=== PATIENT | female | born 1970 | race Caucasian/White ===

== ENCOUNTER 2019-01-27 13:22 | Emergency (ER) | payer OTHER ==
[2019-01-27 13:36] VITALS: BP 111/65; PULSE 82; TEMP 98.2; BMI 31.2
[2019-01-27 14:32] LABS: EPI CELLS 8.9 /HPF (0-5/HPF); HYALINE CASTS 3 /lpf (0-8); URINE APPEARANCE TURBID; URINE BACTERIA 330.9 /hpf (NEGATIVE); URINE BILIRUBIN NEGATIVE (NEGATIVE); URINE COLOR YELLOW; URINE GLUCOSE (UA) NEGATIVE (NEGATIVE); URINE KETONE NEGATIVE (NEGATIVE); URINE LEUK ESTERASE 3+ (NEGATIVE); URINE NITRITE NEGATIVE (NEGATIVE); URINE PROTEIN 2+ (NEGATIVE); URINE UROBILINOGEN 0.2 mg/dL (0.2-1.0); URINE WBC 628 /hpf (0-5)
--- NOTE | 2019-01-27 14:44 | PDOC ---
History of Present Illness - General Chief Complaint: Urinary Problem Stated Complaint: urinary frequency Time Seen by Provider: 01/27/19 13:52 History Source: Patient, Parent(s) ( Quentin translated per pt's request) Exam Limitations: No Limitations - History of Present Illness Travel History: No Past History - Travel Traveled outside of the country in the last 30 days: No Close contact w/someone who was outside of country & ill: No - Past Medical History Allergies/Adverse Reactions: Allergies Allergy/AdvReac Type Severity Reaction Status Date / Time No Known Allergies Allergy Verified 11/06/15 10:44 Home Medications: Ambulatory Orders Acetaminophen [Tylenol .Regular Strength -] 650 mg PO Q4H PRN #0 tablet Docusate Sodium [Colace -] 100 mg PO TID capsule 11/10/15 Levofloxacin [Levaquin] 500 mg PO DAILY #2 tablet 11/10/15 Nitrofurantoin Monohyd/M-Cryst [Macrobid -] 100 mg PO BID #14 capsule 01/27/19 COPD: No - Psycho Social/Smoking Cessation Hx Smoking History: Never smoked Have you smoked in the past 12 months: No Hx Alcohol Use: No Drug/Substance Use Hx: No Substance Use Type: None Review of Systems - Review of Systems Able to Perform ROS?: Yes Is the patient limited Turkmen proficient: No Constitutional: No: Chills, Fever ABD/GI: No: Abdominal Distended, Blood Streaked Bowels, Diarrhea, Nausea, Poor Appetite, Poor Fluid Intake, Vomiting, Indigestion, Abdominal cramping : Yes: Burning, Dysuria, Frequency, Urgency. No: Symptoms Reported, Discharge , Flank Pain, Hematuria, Pain, Testicular Mass, Testicular Swelling, Testicular Pain Musculoskeletal: No: Back Pain Neurological: No: Headache, Numbness, Paresthesia, Dizziness *Physical Exam - Vital Signs Last Vital Signs Temp Pulse Resp BP Pulse Ox 98.2 F 82 19 111/65 98 01/27/19 13:33 01/27/19 13:33 01/27/19 13:33 01/27/19 13:33 01/27/19 13:33 - Physical Exam General Appearance: Yes: Nourished Respiratory/Chest: positive: Lungs Clear, Normal Breath Sounds Cardiovascular: positive: Regular Rhythm, Regular Rate, S1, S2 Gastrointestinal/Abdominal: positive: Normal Bowel Sounds, Soft Integumentary: positive: Normal Color Neurologic: positive: director of maternity services II-XII NML intact, Fully Oriented, Alert, Normal Mood/ Affect, Normal Response, Motor Strength / ED Treatment Course - ADDITIONAL ORDERS Additional order review: Laboratory Results 01/27/19 14:13 Urine Color Yellow Urine Appearance Turbid Urine pH 6.0 Ur Specific [place] 1.009 L Urine Protein 2+ H Urine Glucose (UA) Negative Urine Ketones Negative Urine Blood 3+ H Urine Nitrite Negative Urine Bilirubin Negative Urine Urobilinogen 0.2 Ur Leukocyte Esterase 3+ H Urine WBC (Auto) 628 Urine Casts (Auto) 3 U Epithel Cells (Auto) 8.9 Urine Bacteria (Auto) 330.9 Medical Decision Making - Medical Decision Making Urinary frequency and urgency X 3 days denies pelvic pain, fever, chills or STI concerns + UA, Ucx sent Rx for abx sent to pharmacy Discharge - Discharge Information Problems reviewed: Yes Clinical Impression/Diagnosis: UTI (urinary tract infection) Qualifiers: Urinary tract infection type: acute cystitis Hematuria presence: without hematuria Qualified Code(s): N30.00 - Acute cystitis without hematuria Condition: Stable Disposition: HOME - Admission No - Additional Discharge Information Prescriptions: Nitrofurantoin Monohyd/M-Cryst [Macrobid -] 100 mg PO BID #14 capsule Prescription Drug Monitoring Program (I-STOP) results: I-STOP not reviewed - Follow up/Referral - Patient Discharge Instructions Patient Printed Discharge Instructions: Urinary Tract Infection Additional Instructions: Your urine was abnormal today please take antibiotics as prescribed Increase fluids return to the ER if worsening symptoms occurs - Post Discharge Activity
[2019-01-27 15:12] LABS: YEAST NEGATIVE (NEGATIVE)
== END 2019-01-27 15:15 | disposition home or self-care (01) ==
LOC: JERFT 13:22
DX: N30.00 Acute cystitis without hematuria (principal)
CPT/HCPCS: 81003; 84703; 87086; 87186; 99282-25

== ENCOUNTER 2022-05-17 10:48 | Emergency (ER) | payer OTHER ==
[2022-05-17 10:56] VITALS: BP 127/64; PULSE 66; RESP 17; TEMP 97.9; BMI 31.2
[2022-05-17] MEDS ORDERED: LIDOCAINE 5% TOPICAL PATCH TP ONE (11:33)
[2022-05-17] MEDS ORDERED: ACETAMINOPHEN 500 MG TABLET (FP) PO ONE (11:33)
[2022-05-17] MEDS ORDERED: LIDOCAINE 5% TOPICAL PATCH ONE (11:44)
[2022-05-17] MEDS ORDERED: ACETAMINOPHEN 500 MG TABLET (FP) ONE (11:45)
[2022-05-17] MEDS ORDERED: diazePAM 2 MG TABLET PO ONE (12:02)
[2022-05-17] MEDS ORDERED: DEXAMETHASONE SOD PHOSPHATE 10 MG/1 ML VIAL IM ONE (12:02)
[2022-05-17 12:03] LABS: BASO % 0.7 % (0-2.0); EOS % 3.7 % (0-4.5); HEMATOCRIT 41.7 % (32.4-45.2); HEMOGLOBIN 14.8 GM/dL (10.7-15.3); LYMPH % 26.8 % (8-40); MCH 30.1 pg (25.7-33.7); MCHC 35.4 g/dl (32.0-36.0); MEAN CELL VOLUME 85.1 fl (80-96); MEAN PLT VOLUME 9.9 fl (7.5-11.1); MONO % 5.1 % (3.8-10.2); NEUT % 63.7 % (42.8-82.8); PLATELET COUNT 207 10^3/uL (134-434); RDW 13.4 % (11.6-15.6); WHITE BLOOD COUNT 7.1 K/mm3 (4.0-10.0)
[2022-05-17] MEDS ORDERED: diazePAM 2 MG TABLET ONE (12:04)
[2022-05-17] MEDS ORDERED: DEXAMETHASONE SOD PHOSPHATE 10 MG/1 ML VIAL ONE (12:04)
[2022-05-17 12:10] LABS: INR 0.98 (0.83-1.09); PROTHROMBIN TIME (PATIENT) 11.4 SEC (9.7-13.0)
[2022-05-17 12:17] LABS: BLOOD UREA NITROGEN 18.8 mg/dL (7-18)
[2022-05-17 12:19] LABS: CREATININE 0.7 mg/dL (0.55-1.3)
[2022-05-17 12:21] LABS: BILIRUBIN,TOTAL 0.8 mg/dL (0.2-1); TOT PROT 7.8 g/dl (6.4-8.2)
[2022-05-17] MEDS ORDERED: LIDOCAINE PATCH REMOVAL MC SCH (22:00)
== END 2022-05-17 13:07 | disposition home or self-care (01) ==
LOC: JERFT 10:48
PROC: 3E023GC Introduction of Other Therapeutic Substance into Muscle, Percutaneous Approach (ICD-10-PCS; principal; 2022-05-17)
DX: M79.602 Pain in left arm (principal)
CPT/HCPCS: 36415; 71046-TC-FY; 80053; 84484; 84703; 85025; 85610; 85730; 93005; 93010; 99285-25; J1100